=== PATIENT | female | born 1955 | race Two or more races ===

== ENCOUNTER 2025-02-01 13:59 | Inpatient (IN) | payer OTHER ==
[2025-02-01 15:29] LABS: BASO % 0.4 % (0-2.0); EOS % 0.2 % (0-4.5); HEMOGLOBIN 12.1 GM/dL (10.7-15.3); LYMPH % 7.3 % (8-40); MCH 27.9 pg (25.7-33.7); MCHC 32.8 g/dl (32.0-36.0); MEAN PLT VOLUME 8.7 fl (7.5-11.1); NEUT % 88.1 % (42.8-82.8); PLATELET COUNT 234 10^3/uL (134-434); RBC 4.36 M/mm3 (3.60-5.2); RDW 13.1 % (11.6-15.6); WHITE BLOOD COUNT 16.5 K/mm3 (4.0-10.0)
[2025-02-01 15:35] LABS: INR 1.13 (0.83-1.09); PROTHROMBIN TIME (PATIENT) 12.4 SEC (9.7-13.0)
[2025-02-01 15:38] LABS: ACTIVATED PTT 31.4 SECONDS (25.2-36.5)
[2025-02-01 15:57] LABS: CHLORIDE 98 mmol/L (98-107); POTASSIUM 4.1 mmol/L (3.5-5.1); SODIUM 133 mmol/L (136-145)
[2025-02-01 15:59] LABS: ANION GAP 10 mmol/L (4-13); BLOOD UREA NITROGEN 14.2 mg/dL (7-18); CALCIUM 9.2 mg/dL (8.5-10.1); CO2 26 mmol/L (21-32)
[2025-02-01 16:02] LABS: SGPT/ALT 11 U/L (13-61)
[2025-02-01 16:03] LABS: SGOT/AST 13 U/L (15-37)
[2025-02-01 16:04] LABS: ALK PHOS 105 U/L (45-117); BILIRUBIN,TOTAL 0.5 mg/dL (0.2-1); TOT PROT 6.6 g/dl (6.4-8.2)
[2025-02-01 16:06] LABS: GLUCOSE,RANDOM 714 mg/dL (74-106)
[2025-02-01] MEDS ORDERED: ACETAMINOPHEN INJECTION 100 ML ONE (17:14)
[2025-02-01] MEDS ORDERED: PIPERACILLIN/TAZOB 3.375 GM 3.375 GM/50 ML BAG IVPB ONE (17:14)
[2025-02-01] MEDS ORDERED: VANCOMYCIN 1 GM PREMIX (F) 1 GM/200 ML BAG ONE (17:14)
[2025-02-01] MEDS: ACETAMINOPHEN 1000 MG/100 ML BAG IVPB ONE (17:53)
[2025-02-01] MEDS: SODIUM CHLORIDE 1,000 ML IV STA ×2 (17:53→23:48)
[2025-02-01] MEDS: PIPERACILLIN/TAZOB 3.375 GM 3.375 GM in DEXTROSE 5%-WATER - 50 ML IVPB ONE (18:09)
[2025-02-01] MEDS: VANCOMYCIN 1,000 MG in DEXTROSE 5%-WATER - 250 ML IVPB ONE (18:57)
[2025-02-01] MEDS ORDERED: MORPHINE SULFATE 2 MG/ML SYRINGE ONE (20:52)
[2025-02-01] MEDS: morphine CARPU-JECT 2 MG/1 ML DISP.SYRIN IVPUSH ONE (21:03)
[2025-02-01] MEDS ORDERED: INSULIN ASPART SLIDING SCALE (NOVOLOG) 1 VIAL SQ ONE (21:57)
[2025-02-01] MEDS: INSULIN (NOVOLOG) ASPART 100 UNITS/ML 10ML VIAL SQ ONE ×2 (22:00→23:47)
[2025-02-01] MEDS: LOSARTAN POTASSIUM 25 MG TABLET PO SCH (23:37)
[2025-02-02 00:11] LABS: PHOSPHOROUS 3.3 mg/dL (2.5-4.9)
[2025-02-02 01:07] LABS: PH,URINE 6.5 (5.0-8.0); URINE APPEARANCE CLEAR; URINE BILIRUBIN NEGATIVE (NEGATIVE); URINE COLOR YELLOW; URINE GLUCOSE (UA) 3+ (NEGATIVE); URINE KETONE NEGATIVE (NEGATIVE); URINE LEUK ESTERASE NEGATIVE (NEGATIVE); URINE NITRITE NEGATIVE (NEGATIVE); URINE PROTEIN 2+ (NEGATIVE)
[2025-02-02 01:28] LABS: URINE RBC 19.2 /uL (0-23.9)
[2025-02-02 01:29] LABS: EPI CELLS 3.5 /uL (0-25.1); URINE BACTERIA 7.5 /uL (0-1359); URINE WBC 104.1 /uL (0-25.8)
[2025-02-02] MEDS: ACETAMINOPHEN 1000 MG/100 ML BAG IVPB SCH (02:32)
[2025-02-02 02:39] LABS: LACTIC ACID 2.7 mmol/L (0.4-2.0)
[2025-02-02] MEDS ORDERED: METOPROLOL TARTRATE 5 MG/5 ML VIAL IVPUSH ONE (02:59)
[2025-02-02] MEDS: LABETALOL HCL 100 MG TABLET (FP) PO ONE (03:15)
[2025-02-02] MEDS: PIPERACILLIN/TAZOB 3.375 GM 50 ML IVPB SCH (03:15)
[2025-02-02] MEDS: LACTATED RINGERS SOLUTION 1,000 ML/1,000 ML INFUS.BAG IV SCH (06:23)
[2025-02-02] MEDS: INSULIN ASPART SLIDING SCALE (NOVOLOG) 1 VIAL SQ SCH (07:52)
[2025-02-02 08:34] LABS: BASO % 0.2 % (0-2.0); EOS % 0.2 % (0-4.5); HEMATOCRIT 32.8 % (32.4-45.2); HEMOGLOBIN 10.9 GM/dL (10.7-15.3); LYMPH % 7.1 % (8-40); MCHC 33.1 g/dl (32.0-36.0); MEAN CELL VOLUME 84.6 fl (80-96); MEAN PLT VOLUME 8.8 fl (7.5-11.1); NEUT % 88.5 % (42.8-82.8); PLATELET COUNT 245 10^3/uL (134-434); RBC 3.88 M/mm3 (3.60-5.2); RDW 12.9 % (11.6-15.6); WHITE BLOOD COUNT 17.8 K/mm3 (4.0-10.0)
[2025-02-02 09:02] LABS: CHOLESTEROL 190 mg/dL (50-200)
[2025-02-02 09:03] LABS: POTASSIUM 3.4 mmol/L (3.5-5.1)
[2025-02-02 09:04] LABS: LDL CHOLESTEROL (ONLY SJRH) 123 mg/dL (5-100)
[2025-02-02 09:05] LABS: HDL CHOLESTEROL 45 mg/dL (40-60)
[2025-02-02 09:21] LABS: CALCIUM 8.7 mg/dL (8.5-10.1)
[2025-02-02 09:22] LABS: ALBUMIN 2.7 g/dl (3.4-5.0); BLOOD UREA NITROGEN 16.2 mg/dL (7-18); MAGNESIUM 1.8 mg/dL (1.8-2.4)
[2025-02-02 09:25] LABS: CREATININE 0.7 mg/dL (0.55-1.3)
[2025-02-02 09:27] LABS: TOT PROT 5.8 g/dl (6.4-8.2)
[2025-02-02 09:28] LABS: BILIRUBIN,TOTAL 0.7 mg/dL (0.2-1)
[2025-02-02] MEDS: IBUPROFEN 400 MG TABLET (FP) PO PRN (09:57)
[2025-02-02] MEDS: ENOXAPARIN NA (PORCINE) 40 MG/0.4 ML DISP.SYRIN SQ SCH (09:58)
[2025-02-02 11:06] LABS: LACTIC ACID 2.4 mmol/L (0.4-2.0)
[2025-02-02] MEDS: POTASSIUM CHLORIDE ORAL LIQUID 20 MEQ/15 ML PO ONE (11:58)
[2025-02-02] MEDS: SODIUM CHLORIDE 1,000 ML IV SCH ×2 (12:00→20:46)
[2025-02-02] MEDS ORDERED: ACETAMINOPHEN 1000 MG/100 ML BAG IVPB PRN (17:22)
[2025-02-02] MEDS: LOSARTAN POTASSIUM 25 MG TABLET PO ONE (17:33)
[2025-02-02] MEDS: PIPERACILLIN/TAZOB 3.375 GM 3.375 GM in DEXTROSE 5%-WATER - 50 ML IVPB SCH (19:35)
[2025-02-02] MEDS: DEXTROSE 50%-WATER - 25 GM/50 ML VIAL IVPUSH ONE ×2 (19:35→19:36)
[2025-02-02] MEDS: INSULIN (LEVEMIR) 100 UNITS/ML UNITS SQ SCH (21:49)
[2025-02-02] MEDS: ATORVASTATIN CA 40 MG TABLET (FP) PO SCH (21:49)
[2025-02-02] MEDS: GABAPENTIN 100 MG CAPSULE PO ONE (22:49)
[2025-02-02] MEDS: traMADol HCL 50 MG TABLET PO PRN (22:49)
[2025-02-03 08:32] LABS: HEMATOCRIT 33.2 % (32.4-45.2); MCH 28.2 pg (25.7-33.7); MCHC 33.2 g/dl (32.0-36.0); PLATELET COUNT 283 10^3/uL (134-434); RBC 3.91 M/mm3 (3.60-5.2); RDW 13.1 % (11.6-15.6); WHITE BLOOD COUNT 16.4 K/mm3 (4.0-10.0)
[2025-02-03 08:49] LABS: POTASSIUM 3.7 mmol/L (3.5-5.1)
[2025-02-03 08:56] LABS: ALBUMIN 2.5 g/dl (3.4-5.0); BLOOD UREA NITROGEN 15.2 mg/dL (7-18); CALCIUM 8.6 mg/dL (8.5-10.1); CREATININE 0.6 mg/dL (0.55-1.3)
[2025-02-03 08:58] LABS: BILIRUBIN,TOTAL 0.4 mg/dL (0.2-1); TOT PROT 5.9 g/dl (6.4-8.2)
[2025-02-03] MEDS: LOSARTAN POTASSIUM 50 MG TABLET PO SCH (09:36)
[2025-02-03] MEDS: MUPIROCIN 2% TOPICAL OINTMENT 22 GM TUBE TP SCH (15:11)
[2025-02-03] MEDS: VANCOMYCIN 1 GM PREMIX (F) 1 GM/200 ML BAG IVPB SCH (15:12)
[2025-02-03] MEDS: VANCOMYCIN 1,000 MG in DEXTROSE 5%-WATER - 250 ML IVPB SCH (16:54)
[2025-02-03] MEDS: PIPERACILLIN/TAZOB 3.375 GM 50 ML IVPB SCH (17:53)
[2025-02-03] MEDS: INSULIN (LEVEMIR) 100 UNITS/ML UNITS SQ SCH (21:48)
[2025-02-03] MEDS: amLODIPine BESYLATE 5 MG TABLET (FP) PO ONE (22:53)
[2025-02-04 07:11] LABS: HEMATOCRIT 33.4 % (32.4-45.2); HEMOGLOBIN 10.8 GM/dL (10.7-15.3); MCH 27.6 pg (25.7-33.7); MCHC 32.2 g/dl (32.0-36.0); MEAN CELL VOLUME 85.7 fl (80-96); MEAN PLT VOLUME 7.7 fl (7.5-11.1); PLATELET COUNT 330 10^3/uL (134-434); RDW 13.4 % (11.6-15.6); WHITE BLOOD COUNT 18.6 K/mm3 (4.0-10.0)
[2025-02-04 07:29] LABS: POTASSIUM 3.7 mmol/L (3.5-5.1)
[2025-02-04 07:32] LABS: ALBUMIN 2.4 g/dl (3.4-5.0); BLOOD UREA NITROGEN 9.3 mg/dL (7-18); CALCIUM 8.8 mg/dL (8.5-10.1)
[2025-02-04 07:35] LABS: CREATININE 0.5 mg/dL (0.55-1.3)
[2025-02-04 07:36] LABS: BILIRUBIN,TOTAL 0.4 mg/dL (0.2-1)
[2025-02-04 07:37] LABS: TOT PROT 5.8 g/dl (6.4-8.2)
[2025-02-04] MEDS: LOSARTAN POTASSIUM 50 MG TABLET PO SCH (08:50)
[2025-02-04 10:24] VITALS: BMI 21.9
[2025-02-04] MEDS: amLODIPine BESYLATE 5 MG TABLET (FP) PO SCH (12:15)
[2025-02-04] MEDS: ACETAMINOPHEN 325 MG TABLET (FP) PO PRN (13:31)
[2025-02-04] MEDS: traMADol HCL 50 MG TABLET PO PRN (13:42)
[2025-02-04] MEDS: VANCOMYCIN 1 GM PREMIX (F) 1 GM/200 ML BAG IVPB SCH (14:06)
[2025-02-04] MEDS: IBUPROFEN 600 MG TABLET (FP) PO PRN (14:31)
[2025-02-04] MEDS: LABETALOL HCL 100 MG TABLET (FP) PO ONE (14:38)
[2025-02-05] MEDS: INSULIN (NOVOLOG) ASPART 100 UNITS/ML 10ML VIAL SQ SCH (06:14)
[2025-02-05 08:04] LABS: HEMATOCRIT 29.6 % (32.4-45.2); HEMOGLOBIN 10.1 GM/dL (10.7-15.3); MCH 28.3 pg (25.7-33.7); MEAN CELL VOLUME 83.4 fl (80-96); PLATELET COUNT 315 10^3/uL (134-434); RBC 3.55 M/mm3 (3.60-5.2); RDW 13.5 % (11.6-15.6); WHITE BLOOD COUNT 13.2 K/mm3 (4.0-10.0)
[2025-02-05 08:20] LABS: POTASSIUM 3.6 mmol/L (3.5-5.1)
[2025-02-05 08:24] LABS: ALBUMIN 2.3 g/dl (3.4-5.0); BLOOD UREA NITROGEN 14.2 mg/dL (7-18); MAGNESIUM 1.9 mg/dL (1.8-2.4)
[2025-02-05 08:26] LABS: CALCIUM 8.8 mg/dL (8.5-10.1)
[2025-02-05 08:27] LABS: CREATININE 0.5 mg/dL (0.55-1.3)
[2025-02-05 08:29] LABS: BILIRUBIN,TOTAL 0.4 mg/dL (0.2-1); TOT PROT 5.8 g/dl (6.4-8.2)
[2025-02-05] MEDS: amLODIPine BESYLATE 5 MG TABLET (FP) PO ONE (10:28)
[2025-02-05] MEDS: INSULIN (LEVEMIR) 100 UNITS/ML UNITS SQ SCH (21:05)
[2025-02-06 07:51] LABS: HEMATOCRIT 32.8 % (32.4-45.2); MCH 28.2 pg (25.7-33.7); MCHC 33.5 g/dl (32.0-36.0); MEAN CELL VOLUME 84.1 fl (80-96); MEAN PLT VOLUME 7.8 fl (7.5-11.1); PLATELET COUNT 410 10^3/uL (134-434); RDW 13.6 % (11.6-15.6); WHITE BLOOD COUNT 12.7 K/mm3 (4.0-10.0)
[2025-02-06 08:09] LABS: POTASSIUM 4.4 mmol/L (3.5-5.1)
[2025-02-06 08:25] LABS: ALBUMIN 2.4 g/dl (3.4-5.0); BLOOD UREA NITROGEN 8.7 mg/dL (7-18)
[2025-02-06 08:27] LABS: BILIRUBIN,TOTAL 0.5 mg/dL (0.2-1); TOT PROT 6.2 g/dl (6.4-8.2)
[2025-02-06 08:28] LABS: CALCIUM 9.3 mg/dL (8.5-10.1); CREATININE 0.7 mg/dL (0.55-1.3)
[2025-02-06] MEDS ORDERED: INSULIN (LEVEMIR) 100 UNITS/ML UNITS SQ SCH (08:49)
[2025-02-06] MEDS: amLODIPine BESYLATE 10 MG TABLET (FP) PO SCH (09:27)
[2025-02-06] MEDS ORDERED: VANCOMYCIN/WATER FOR INJ (PEG) 1 GM/200 ML BAG IVPB SCH (10:57)
[2025-02-06] MEDS: LORazepam 1 MG TABLET PO PRN (11:34)
[2025-02-06] MEDS: LOSARTAN POTASSIUM 50 MG TABLET PO ONE (16:20)
[2025-02-06] MEDS: VANCOMYCIN/WATER 1250 MG 1,250 MG/250 ML BAG IVPB SCH (16:20)
[2025-02-06] MEDS: INSULIN GLARGINE (LANTUS) 100 UNITS/ML UNITS SQ SCH (21:17)
[2025-02-07 06:58] LABS: HEMATOCRIT 32.4 % (32.4-45.2); HEMOGLOBIN 10.6 GM/dL (10.7-15.3); MCH 27.8 pg (25.7-33.7); MCHC 32.9 g/dl (32.0-36.0); MEAN CELL VOLUME 84.6 fl (80-96); MEAN PLT VOLUME 7.5 fl (7.5-11.1); PLATELET COUNT 469 10^3/uL (134-434); RBC 3.83 M/mm3 (3.60-5.2); RDW 13.6 % (11.6-15.6); WHITE BLOOD COUNT 13.2 K/mm3 (4.0-10.0)
[2025-02-07 07:23] LABS: POTASSIUM 3.4 mmol/L (3.5-5.1)
[2025-02-07 07:25] LABS: CALCIUM 8.5 mg/dL (8.5-10.1)
[2025-02-07 07:26] LABS: ALBUMIN 2.4 g/dl (3.4-5.0); BLOOD UREA NITROGEN 7.8 mg/dL (7-18)
[2025-02-07 07:29] LABS: CREATININE 0.6 mg/dL (0.55-1.3)
[2025-02-07 07:30] LABS: BILIRUBIN,TOTAL 0.6 mg/dL (0.2-1); TOT PROT 6.1 g/dl (6.4-8.2)
[2025-02-07] MEDS: FUROSEMIDE 40 MG/4 ML INJECTABLE VIAL IVPUSH ONE ×2 (08:09→09:20)
[2025-02-07] MEDS: KCL 10 MEQ IVPB 10 MEQ/100 ML INFUS.BAG IVPB SCH (09:04)
[2025-02-07] MEDS: LOSARTAN POTASSIUM 50 MG TABLET PO SCH (09:05)
[2025-02-07] MEDS: POTASSIUM CHLORIDE TABS 20 MEQ TABLET.ER (FP) PO ONE (09:20)
[2025-02-07] MEDS ORDERED: ACETAMINOPHEN 325 MG TABLET (FP) PO PRN (09:45)
[2025-02-07] MEDS: ENOXAPARIN NA (PORCINE) 40 MG/0.4 ML DISP.SYRIN SQ SCH (11:18)
[2025-02-07] MEDS: amLODIPine BESYLATE 10 MG TABLET (FP) PO SCH (11:19)
[2025-02-07] MEDS: PIPERACILLIN/TAZOB 3.375 GM 50 ML IVPB SCH ×2 (11:27→19:18)
[2025-02-07] MEDS: MUPIROCIN 2% TOPICAL OINTMENT 22 GM TUBE TP SCH ×2 (11:27→22:20)
[2025-02-07] MEDS: INSULIN ASPART SLIDING SCALE (NOVOLOG) 1 VIAL SQ SCH (11:45)
[2025-02-07] MEDS: INSULIN (NOVOLOG) ASPART 100 UNITS/ML 10ML VIAL SQ SCH (11:45)
[2025-02-07] MEDS ORDERED: HEPARIN NA (PORCINE) 5,000 UNITS/ML 1ML VIAL ONE (13:50)
[2025-02-07] MEDS ORDERED: LIDOCAINE HCL 1%, 10 MG/ML (20ML VIAL) ONE (13:50)
[2025-02-07] MEDS ORDERED: FUROSEMIDE 40 MG/4 ML INJECTABLE VIAL IVPUSH SCH (14:00)
[2025-02-07] MEDS ORDERED: MIDAZOLAM HCL 2 MG/2 ML SINGLE DOSE VIAL ONE ×3 (15:01→16:28)
[2025-02-07] MEDS ORDERED: PROPOFOL 20 ML ONE (15:13)
[2025-02-07] MEDS: LIDOCAINE HCL 1%, 10 MG/ML (20ML VIAL) NR ONE (15:20)
[2025-02-07] MEDS: HEPARIN NA (PORCINE) 5,000 UNITS/ML 1ML VIAL SQ ONE (15:28)
[2025-02-07] MEDS ORDERED: NITROGLYCERIN 50 MG/10 ML VIAL IVPB ONE (16:10)
[2025-02-07] MEDS ORDERED: ASPIRIN COATED 81 MG TABLET.EC ONE (17:56)
[2025-02-07] MEDS ORDERED: CLOPIDOGREL BISULFATE 75 MG TABLET (FP) ONE (17:56)
[2025-02-07] MEDS: CLOPIDOGREL BISULFATE 75 MG TABLET (FP) PO ONE (17:59)
[2025-02-07] MEDS ORDERED: ASPIRIN 81 MG CHEWABLE TABLETS ONE (18:02)
[2025-02-07] MEDS: ASPIRIN 81 MG CHEWABLE TABLETS PO ONE (18:03)
[2025-02-07] MEDS ORDERED: ONDANSETRON 4 MG/2 ML VIAL IVPUSH PRN (18:43)
[2025-02-07] MEDS ORDERED: PROMETHAZINE HCL 25 MG/1 ML VIAL IVPB PRN (18:43)
[2025-02-07] MEDS: LACTATED RINGERS SOLUTION 1,000 ML IV SCH (19:03)
[2025-02-07] MEDS ORDERED: PIPERACILLIN/TAZOBACTAM 3.375 GM VIAL IVPB ONE (19:06)
[2025-02-07] MEDS: ACETAMINOPHEN 325 MG TABLET (FP) PO PRN (20:43)
[2025-02-07] MEDS ORDERED: ATORVASTATIN CA 40 MG TABLET (FP) PO SCH (22:00)
[2025-02-07] MEDS: INSULIN GLARGINE (LANTUS) 100 UNITS/ML UNITS SQ SCH (22:19)
[2025-02-07] MEDS: ATORVASTATIN CA 40 MG TABLET (FP) PO SCH (22:20)
[2025-02-08] MEDS: VANCOMYCIN/WATER 1250 MG 1,250 MG/250 ML BAG IVPB SCH (02:52)
[2025-02-08] MEDS: traMADol HCL 50 MG TABLET PO ONE (05:22)
[2025-02-08] MEDS: INSULIN (NOVOLOG) ASPART 100 UNITS/ML 10ML VIAL SQ SCH (06:31)
[2025-02-08] MEDS: INSULIN ASPART SLIDING SCALE (NOVOLOG) 1 VIAL SQ SCH (06:31)
[2025-02-08 08:02] LABS: POTASSIUM 3.1 mmol/L (3.5-5.1)
[2025-02-08 08:08] LABS: CALCIUM 8.3 mg/dL (8.5-10.1)
[2025-02-08 08:09] LABS: ALBUMIN 2.2 g/dl (3.4-5.0); BLOOD UREA NITROGEN 6.6 mg/dL (7-18)
[2025-02-08 08:10] LABS: CREATININE 0.6 mg/dL (0.55-1.3); HEMATOCRIT 29.5 % (34.1-44.9); HEMOGLOBIN 9.6 g/dL (11.2-15.7); MCHC 32.5 g/dl (32.2-35.5); MEAN PLT VOLUME 9.5 fl (9.4-12.3); PLATELET COUNT 458 x10^3/uL (182-369); RDW 12.7 % (12.4-16.6)
[2025-02-08 08:12] LABS: BILIRUBIN,TOTAL 0.5 mg/dL (0.2-1); TOT PROT 5.8 g/dl (6.4-8.2)
[2025-02-08 09:14] LABS: MAGNESIUM 1.7 mg/dL (1.8-2.4)
[2025-02-08] MEDS: ENOXAPARIN NA (PORCINE) 40 MG/0.4 ML DISP.SYRIN SQ SCH (09:57)
[2025-02-08] MEDS: amLODIPine BESYLATE 10 MG TABLET (FP) PO SCH (09:58)
[2025-02-08] MEDS: ASPIRIN 81 MG CHEWABLE TABLETS PO SCH (09:58)
[2025-02-08] MEDS: LOSARTAN POTASSIUM 50 MG TABLET PO SCH (09:58)
[2025-02-08] MEDS: CLOPIDOGREL BISULFATE 75 MG TABLET (FP) PO SCH (09:58)
[2025-02-08] MEDS: MAGNESIUM 2GM/50ML STERILE WATER IVPB IVPB ONE (17:14)
[2025-02-08] MEDS: POTASSIUM CHLORIDE TABS 20 MEQ TABLET.ER (FP) PO ONE (17:14)
[2025-02-08] MEDS: INSULIN GLARGINE (LANTUS) 100 UNITS/ML UNITS SQ SCH (22:02)
[2025-02-09 07:53] LABS: HEMATOCRIT 31.7 % (34.1-44.9); HEMOGLOBIN 10.4 g/dL (11.2-15.7); MCHC 32.8 g/dl (32.2-35.5); MEAN CELL VOLUME 84.8 fl (79.4-94.8); MEAN PLT VOLUME 9.3 fl (9.4-12.3); PLATELET COUNT 502 x10^3/uL (182-369); RDW 12.8 % (12.4-16.6)
[2025-02-09 08:16] LABS: POTASSIUM 3.5 mmol/L (3.5-5.1)
[2025-02-09 08:19] LABS: ALBUMIN 2.4 g/dl (3.4-5.0); CALCIUM 8.5 mg/dL (8.5-10.1)
[2025-02-09 08:20] LABS: BLOOD UREA NITROGEN 6.5 mg/dL (7-18)
[2025-02-09 08:23] LABS: CREATININE 0.6 mg/dL (0.55-1.3)
[2025-02-09 08:24] LABS: BILIRUBIN,TOTAL 0.8 mg/dL (0.2-1); TOT PROT 6.3 g/dl (6.4-8.2)
[2025-02-09] MEDS: LACTATED RINGERS SOLUTION 1,000 ML IV SCH (16:29)
[2025-02-09] MEDS: CARVEDILOL 6.25 MG TABLET (FP) PO SCH (16:29)
[2025-02-09] MEDS: INSULIN ASPART SLIDING SCALE (NOVOLOG) 1 VIAL SQ SCH (18:06)
[2025-02-09] MEDS: INSULIN (NOVOLOG) ASPART 100 UNITS/ML 10ML VIAL SQ SCH (18:07)
[2025-02-09] MEDS: PIPERACILLIN/TAZOB 3.375 GM 50 ML IVPB SCH (18:19)
[2025-02-09] MEDS ORDERED: INSULIN (LEVEMIR) 100 UNITS/ML UNITS SQ ONE ×2 (21:40→22:05)
[2025-02-09] MEDS: MUPIROCIN 2% TOPICAL OINTMENT 22 GM TUBE TP SCH (23:41)
[2025-02-10] MEDS: INSULIN GLARGINE (LANTUS) 100 UNITS/ML UNITS SQ SCH ×2 (01:06→22:01)
[2025-02-10] MEDS: ATORVASTATIN CA 40 MG TABLET (FP) PO SCH ×2 (01:07→22:00)
[2025-02-10] MEDS: VANCOMYCIN/WATER 1250 MG 1,250 MG/250 ML BAG IVPB SCH (01:57)
[2025-02-10] MEDS ORDERED: hydrALAZINE HCL 20 MG/ML VIAL IVPUSH ONE (05:57)
[2025-02-10] MEDS: hydrALAZINE HCL 10 MG TABLET PO ONE (06:42)
[2025-02-10 08:53] LABS: HEMOGLOBIN 10.2 g/dL (11.2-15.7); MCHC 31.9 g/dl (32.2-35.5); MEAN CELL VOLUME 86.3 fl (79.4-94.8); MEAN PLT VOLUME 9.2 fl (9.4-12.3); PLATELET COUNT 522 x10^3/uL (182-369); RDW 12.8 % (12.4-16.6)
[2025-02-10] MEDS: CLOPIDOGREL BISULFATE 75 MG TABLET (FP) PO SCH (09:14)
[2025-02-10] MEDS: LOSARTAN POTASSIUM 50 MG TABLET PO SCH (09:15)
[2025-02-10] MEDS: amLODIPine BESYLATE 10 MG TABLET (FP) PO SCH (09:15)
[2025-02-10] MEDS: ASPIRIN 81 MG CHEWABLE TABLETS PO SCH (09:15)
[2025-02-10] MEDS: ACETAMINOPHEN 325 MG TABLET (FP) PO PRN (09:15)
[2025-02-10] MEDS: ENOXAPARIN NA (PORCINE) 40 MG/0.4 ML DISP.SYRIN SQ SCH (09:16)
[2025-02-10 09:21] LABS: POTASSIUM 3.5 mmol/L (3.5-5.1)
[2025-02-10 09:25] LABS: ALBUMIN 2.3 g/dl (3.4-5.0); BLOOD UREA NITROGEN 5.9 mg/dL (7-18); CALCIUM 8.3 mg/dL (8.5-10.1)
[2025-02-10 09:29] LABS: CREATININE 0.5 mg/dL (0.55-1.3)
[2025-02-10 09:30] LABS: BILIRUBIN,TOTAL 0.6 mg/dL (0.2-1); TOT PROT 6.2 g/dl (6.4-8.2)
[2025-02-10] MEDS ORDERED: HEPARIN NA (PORCINE) 5,000 UNITS/ML 1ML VIAL ONE (14:03)
[2025-02-10] MEDS ORDERED: LIDOCAINE HCL/PF 2% SDV 5ML VIAL ONE (16:52)
[2025-02-10] MEDS ORDERED: PROPOFOL 20 ML ONE (16:53)
[2025-02-10] MEDS ORDERED: MIDAZOLAM HCL 2 MG/2 ML SINGLE DOSE VIAL ONE (16:53)
[2025-02-10] MEDS ORDERED: LACTATED RINGERS SOLUTION 1,000 ML IV SCH ×2 (18:23→18:45)
[2025-02-10] MEDS ORDERED: PROMETHAZINE HCL 25 MG/1 ML VIAL IVPB PRN (18:35)
[2025-02-10] MEDS ORDERED: ONDANSETRON 4 MG/2 ML VIAL IVPUSH PRN (18:35)
[2025-02-10] MEDS: ACETAMINOPHEN 1000 MG/100 ML BAG IVPB ONE (18:37)
[2025-02-10] MEDS: CARVEDILOL 6.25 MG TABLET (FP) PO SCH (22:00)
[2025-02-10] MEDS: MUPIROCIN 2% TOPICAL OINTMENT 22 GM TUBE TP SCH (22:02)
[2025-02-11] MEDS: PIPERACILLIN/TAZOB 3.375 GM 50 ML IVPB SCH (02:21)
[2025-02-11] MEDS: VANCOMYCIN/WATER 1250 MG 1,250 MG/250 ML BAG IVPB SCH (02:32)
[2025-02-11] MEDS: INSULIN (NOVOLOG) ASPART 100 UNITS/ML 10ML VIAL SQ SCH (07:37)
[2025-02-11] MEDS: INSULIN ASPART SLIDING SCALE (NOVOLOG) 1 VIAL SQ SCH (07:37)
[2025-02-11 08:08] LABS: ABSOLUTE IMMATURE GRANULOCYTES 0.04 x10^3/uL (0.0-0.031); BASOPHILS # 0.02 x10^3/uL (0.01-0.08); EOSINOPHIL % 4.5 % (0.7-5.8); EOSINOPHILS # 0.38 x10^3/uL (0.04-0.36); HEMATOCRIT 27.6 % (34.1-44.9); HEMOGLOBIN 8.9 g/dL (11.2-15.7); MCHC 32.2 g/dl (32.2-35.5); MEAN CELL VOLUME 85.4 fl (79.4-94.8); MEAN PLT VOLUME 8.6 fl (9.4-12.3); MONOCYTE # 0.69 x10^3/uL (0.24-0.86); MONOCYTE % 8.2 % (4.7-12.5); PLATELET COUNT 437 x10^3/uL (182-369); RDW 12.9 % (12.4-16.6)
[2025-02-11 08:25] LABS: POTASSIUM 3.1 mmol/L (3.5-5.1)
[2025-02-11 08:27] LABS: BLOOD UREA NITROGEN 10.8 mg/dL (7-18); CALCIUM 8.2 mg/dL (8.5-10.1)
[2025-02-11 08:28] LABS: ALBUMIN 2.2 g/dl (3.4-5.0); MAGNESIUM 1.9 mg/dL (1.8-2.4)
[2025-02-11 08:31] LABS: CREATININE 0.6 mg/dL (0.55-1.3)
[2025-02-11 08:32] LABS: BILIRUBIN,TOTAL 0.4 mg/dL (0.2-1); TOT PROT 5.5 g/dl (6.4-8.2)
[2025-02-11] MEDS: ACETAMINOPHEN 325 MG TABLET (FP) PO PRN (09:42)
[2025-02-11] MEDS: LOSARTAN POTASSIUM 50 MG TABLET PO SCH (09:43)
[2025-02-11] MEDS: ASPIRIN 81 MG CHEWABLE TABLETS PO SCH (09:43)
[2025-02-11] MEDS: CLOPIDOGREL BISULFATE 75 MG TABLET (FP) PO SCH (09:48)
[2025-02-11] MEDS: ENOXAPARIN NA (PORCINE) 40 MG/0.4 ML DISP.SYRIN SQ SCH (09:48)
[2025-02-11] MEDS: amLODIPine BESYLATE 10 MG TABLET (FP) PO SCH (09:48)
[2025-02-11] MEDS ORDERED: LORazepam 2 MG/ML SDV VIAL IVPUSH PRN (10:27)
[2025-02-11] MEDS: oxyCODONE HCL 5 MG TABLET PO PRN ×2 (11:01→21:32)
[2025-02-11] MEDS: SODIUM HYPOCHLORITE 0.5% 473 ML- BULK BOTTLE TP SCH (12:35)
[2025-02-11] MEDS: ACETAMINOPHEN 325 MG TABLET (FP) PO SCH (14:36)
[2025-02-11] MEDS: POTASSIUM CHLORIDE TABS 20 MEQ TABLET.ER (FP) PO ONE (14:39)
[2025-02-12] MEDS: VANCOMYCIN/WATER FOR INJ (PEG) 1,000 MG/200 ML BAG IVPB SCH (02:39)
[2025-02-12 08:34] LABS: POTASSIUM 3.6 mmol/L (3.5-5.1)
[2025-02-12 08:40] LABS: ALBUMIN 2.4 g/dl (3.4-5.0); BLOOD UREA NITROGEN 10.4 mg/dL (7-18); CALCIUM 8.5 mg/dL (8.5-10.1); MAGNESIUM 1.9 mg/dL (1.8-2.4)
[2025-02-12 08:43] LABS: CREATININE 0.7 mg/dL (0.55-1.3)
[2025-02-12 08:44] LABS: BILIRUBIN,TOTAL 0.4 mg/dL (0.2-1)
[2025-02-12 08:45] LABS: ABSOLUTE IMMATURE GRANULOCYTES 0.07 x10^3/uL (0.0-0.031); BASOPHILS # 0.05 x10^3/uL (0.01-0.08); EOSINOPHIL % 3.9 % (0.7-5.8); EOSINOPHILS # 0.44 x10^3/uL (0.04-0.36); HEMATOCRIT 29.1 % (34.1-44.9); HEMOGLOBIN 9.3 g/dL (11.2-15.7); MEAN CELL VOLUME 87.1 fl (79.4-94.8); MEAN PLT VOLUME 9.3 fl (9.4-12.3); MONOCYTE # 0.89 x10^3/uL (0.24-0.86); PLATELET COUNT 495 x10^3/uL (182-369)
[2025-02-12] MEDS: INSULIN (NOVOLOG) ASPART 100 UNITS/ML 10ML VIAL SQ SCH (12:18)
[2025-02-12] MEDS: INSULIN GLARGINE (LANTUS) 100 UNITS/ML UNITS SQ SCH (22:23)
[2025-02-13 08:04] LABS: ABSOLUTE IMMATURE GRANULOCYTES 0.05 x10^3/uL (0.0-0.031); BASOPHILS # 0.05 x10^3/uL (0.01-0.08); EOSINOPHIL % 4.7 % (0.7-5.8); EOSINOPHILS # 0.48 x10^3/uL (0.04-0.36); HEMATOCRIT 28.8 % (34.1-44.9); HEMOGLOBIN 9.3 g/dL (11.2-15.7); MCHC 32.3 g/dl (32.2-35.5); MEAN CELL VOLUME 86.2 fl (79.4-94.8); MEAN PLT VOLUME 9.2 fl (9.4-12.3); MONOCYTE # 0.74 x10^3/uL (0.24-0.86); MONOCYTE % 7.3 % (4.7-12.5); PLATELET COUNT 488 x10^3/uL (182-369); RDW 13.2 % (12.4-16.6)
[2025-02-13 08:24] LABS: POTASSIUM 3.8 mmol/L (3.5-5.1)
[2025-02-13 08:38] LABS: BLOOD UREA NITROGEN 8.3 mg/dL (7-18); CALCIUM 8.5 mg/dL (8.5-10.1); MAGNESIUM 1.9 mg/dL (1.8-2.4)
[2025-02-13 08:40] LABS: ALBUMIN 2.4 g/dl (3.4-5.0)
[2025-02-13 08:42] LABS: CREATININE 0.7 mg/dL (0.55-1.3)
[2025-02-13 08:44] LABS: BILIRUBIN,TOTAL 0.5 mg/dL (0.2-1); TOT PROT 6.1 g/dl (6.4-8.2)
[2025-02-13] MEDS: CEFTRIAXONE 2 GM-D5W BAG 2 GM/50 ML BAG IVPB SCH (16:43)
[2025-02-14 07:48] LABS: ABSOLUTE IMMATURE GRANULOCYTES 0.04 x10^3/uL (0.0-0.031); BASOPHILS # 0.04 x10^3/uL (0.01-0.08); EOSINOPHIL % 3.6 % (0.7-5.8); HEMATOCRIT 28.4 % (34.1-44.9); HEMOGLOBIN 9.1 g/dL (11.2-15.7); MEAN CELL VOLUME 85.3 fl (79.4-94.8); MEAN PLT VOLUME 9.3 fl (9.4-12.3); MONOCYTE # 0.63 x10^3/uL (0.24-0.86); MONOCYTE % 7.6 % (4.7-12.5); PLATELET COUNT 516 x10^3/uL (182-369); RDW 13.4 % (12.4-16.6)
[2025-02-14 08:14] LABS: POTASSIUM 3.2 mmol/L (3.5-5.1)
[2025-02-14 08:23] LABS: ALBUMIN 2.3 g/dl (3.4-5.0); BLOOD UREA NITROGEN 8.1 mg/dL (7-18); CREATININE 0.5 mg/dL (0.55-1.3); MAGNESIUM 1.6 mg/dL (1.8-2.4)
[2025-02-14 08:24] LABS: BILIRUBIN,TOTAL 0.4 mg/dL (0.2-1); TOT PROT 5.9 g/dl (6.4-8.2)
[2025-02-14 08:25] LABS: CALCIUM 8.7 mg/dL (8.5-10.1)
[2025-02-14] MEDS: CARVEDILOL 12.5 MG TABLET (FP) PO SCH (09:52)
[2025-02-14] MEDS: POTASSIUM CHLORIDE ORAL LIQUID 20 MEQ/15 ML PO ONE (17:06)
[2025-02-14] MEDS: MAGNESIUM 1GM/D5W - 1 GM/100 ML IVPB IVPB ONE (17:06)
[2025-02-14] MEDS: POTASSIUM CHLORIDE TABS 20 MEQ TABLET.ER (FP) PO ONE (17:40)
[2025-02-14] MEDS ORDERED: INSULIN ASPART SLIDING SCALE (NOVOLOG) 1 VIAL SQ ONE (18:53)
[2025-02-15 08:33] LABS: POTASSIUM 3.6 mmol/L (3.5-5.1)
[2025-02-15 08:47] LABS: ABSOLUTE IMMATURE GRANULOCYTES 0.02 x10^3/uL (0.0-0.031); BASOPHILS # 0.06 x10^3/uL (0.01-0.08); EOSINOPHIL % 2.4 % (0.7-5.8); EOSINOPHILS # 0.22 x10^3/uL (0.04-0.36); HEMATOCRIT 29.1 % (34.1-44.9); HEMOGLOBIN 9.5 g/dL (11.2-15.7); MCHC 32.6 g/dl (32.2-35.5); MEAN CELL VOLUME 86.9 fl (79.4-94.8); MEAN PLT VOLUME 9.5 fl (9.4-12.3); MONOCYTE # 0.64 x10^3/uL (0.24-0.86); MONOCYTE % 6.9 % (4.7-12.5); PLATELET COUNT 517 x10^3/uL (182-369); RDW 13.8 % (12.4-16.6)
[2025-02-15 08:49] LABS: BLOOD UREA NITROGEN 10.5 mg/dL (7-18); CALCIUM 8.5 mg/dL (8.5-10.1); MAGNESIUM 1.7 mg/dL (1.8-2.4)
[2025-02-15 08:50] LABS: ALBUMIN 2.4 g/dl (3.4-5.0)
[2025-02-15 08:52] LABS: BILIRUBIN,TOTAL 0.4 mg/dL (0.2-1); CREATININE 0.5 mg/dL (0.55-1.3)
[2025-02-15] MEDS ORDERED: MAGNESIUM OXIDE 400 MG TABLET (FP) PO SCH (10:00)
[2025-02-15] MEDS: AMOX TR/POT CLAV 875MG/125MG TABLETS (FP) PO SCH (10:57)
[2025-02-15] MEDS: MAGNESIUM 1GM/D5W - 1 GM/100 ML IVPB IVPB ONE (11:13)
[2025-02-15] MEDS ORDERED: POTASSIUM CHLORIDE TABS 20 MEQ TABLET.ER (FP) PO ONE (17:11)
[2025-02-15] MEDS ORDERED: INSULIN ASPART SLIDING SCALE (NOVOLOG) 1 VIAL SQ ONE (18:51)
[2025-02-16 23:27] VITALS: RESP 18
[2025-02-17] MEDS: ACETAMINOPHEN 325 MG TABLET (FP) PO ONE (04:49)
[2025-02-17 06:02] VITALS: PULSE 77
[2025-02-17 13:03] VITALS: BP 164/90; TEMP 98.6
== END 2025-02-17 15:24 | DRG 854 ==
LOC: JER 13:59 → JERBED 20:41 → OBSVTOIN 23:00 → J7W 23:13 → J4W 02-06 17:26 → J7W 02-09 15:01
PROVIDERS: ADMIT Student in an Organized Health Care Education/Training Program; ATTEND Physician Assistant
PROC: 047S3ZZ Dilation of Left Posterior Tibial Artery, Percutaneous Approach (ICD-10-PCS; 2025-02-07)
PROC: 04CU3ZZ Extirpation of Matter from Left Peroneal Artery, Percutaneous Approach (ICD-10-PCS; 2025-02-07)
PROC: 047U3ZZ Dilation of Left Peroneal Artery, Percutaneous Approach (ICD-10-PCS; 2025-02-07)
PROC: 04CS3ZZ Extirpation of Matter from Left Posterior Tibial Artery, Percutaneous Approach (ICD-10-PCS; principal; 2025-02-07 14:00)
PROC: 0JBP0ZZ Excision of Left Lower Leg Subcutaneous Tissue and Fascia, Open Approach (ICD-10-PCS; 2025-02-10)
PROC: F08 Physical Rehabilitation and Diagnostic Audiology, Rehabilitation, Activities of Daily Living Treatment (ICD-10-PCS; 2025-02-10)
DX: A41.9 Sepsis, unspecified organism (principal); E87.20 Acidosis, unspecified; L03.116 Cellulitis of left lower limb; I70.25 Atherosclerosis of native arteries of other extremities with ulceration; E11.65 Type 2 diabetes mellitus with hyperglycemia; I10 Essential (primary) hypertension; R09.02 Hypoxemia; E83.42 Hypomagnesemia; L08.9 Local infection of the skin and subcutaneous tissue, unspecified; L02.426 Furuncle of left lower limb; E88.09 Other disorders of plasma-protein metabolism, not elsewhere classified; E87.6 Hypokalemia; D72.829 Elevated white blood cell count, unspecified; D64.9 Anemia, unspecified; R59.1 Generalized enlarged lymph nodes
CPT/HCPCS: 0241U-QW; 36415; 71045-TC-FY; 73590-TC-LT-FY; 73610-TC-LT-FY; 73630-TC-LT; 73718-TC-LT; 76000-TC-FY; 80048; 80053; 80061; 81003; 82010; 82962; 83036; 83605; 83735; 83880; 83930; 84100; 84484; 85025; 85027; 85610; 85651; 85730; 86140; 86850; 86900; 86901; 87040; 87070; 87186; 87205; 88304-TC; 93005; 93010; 93306-TC; 93922; 93925-TC; 93970-TC; 93971-TC; 94010; 94760; 97116-GP; 97162-GP; 99285-25; C1725; C1769; G0378; G0480; J0131; J1644